=== PATIENT | female | born 1950 | race Caucasian/White ===

== ENCOUNTER 2016-05-08 11:31 | Day surgery (SDC) | payer OTHER ==
[2016-05-08] MEDS ORDERED: IV START KIT ONE (11:49)
[2016-05-08] MEDS ORDERED: LACTATED RINGERS 1,000 ML ONE (11:49)
[2016-05-08] MEDS ORDERED: MIDAZOLAM HCL 5 MG/5 ML VIAL IV PRN (12:46)
[2016-05-08] MEDS ORDERED: FENTANYL 250 MCG/5 ML AMP IV PRN (12:46)
[2016-05-08] MEDS ORDERED: PROPOFOL 40 ML IV ONE (12:55)
[2016-05-08] MEDS ORDERED: LACTATED RINGERS 1,000 ML IV SCH ×2 (13:00)
== END 2016-05-08 14:17 | disposition home or self-care (01) ==
LOC: SDC 11:31
PROVIDERS: ATTEND Family Medicine
PROC: 0DJD8ZZ Inspection of Lower Intestinal Tract, Via Natural or Artificial Opening Endoscopic (ICD-10-PCS; principal; 2016-05-08)
DX: Z12.11 Encounter for screening for malignant neoplasm of colon (principal); E78.2 Mixed hyperlipidemia; M17.11 Unilateral primary osteoarthritis, right knee
CPT/HCPCS: 45378; J7120